=== PATIENT | male | born 1995 | race Caucasian/White ===

== ENCOUNTER 2017-10-25 15:46 | Emergency (ER) | payer SELFPAY ==
[~2017-10-25] VITALS: Ht 180.3 cm; Wt 79.4 kg
--- NOTE | 2017-10-25 16:09 | ED GU-Male ---
General Chief Complaint: -Male Stated Complaint: LT TESTICULAR PAIN/SWELLING Nursing Triage Note: PT CO OF L TESTICULAR PAIN FOR APPROX 1 MONTH, SWELLING FOR A YEAR. Source: patient Exam Limitations: no limitations History of Present Illness Time seen by provider: 16:05 Initial Comments The patient is a 21-year-old white male. He states that he has felt that he has had some swelling in his scrotum for the past year. Over the last month he has had some mild intermittent pain. It is not clear what prompted his visit today. He denies any burning on urination. There have been no sexual problems and no blood in the ejaculate. He does not recall any specific injury. Severity/Quality: mild Location: scrotal Radiation: none Activities at Onset: none Prior Genitourinary Problems: none Sexual [place] History: less than 2 months ago Associated Symptoms: denies symptoms Allergies and Home Medications Home Medications No Active Prescriptions or Reported Meds Constitutional: see HPI EENTM: no symptoms reported Respiratory: no symptoms reported Cardiovascular: no symptoms reported Gastrointestinal: no symptoms reported Genitourinary: see HPI Musculoskeletal: no symptoms reported Skin: no symptoms reported Psychiatric/Neurological: No Symptoms Reported Endocrine: No Symptoms Reported Hematologic/Lymphatic: No Symptoms Reported Past Ecvjgyz-Gkmnbo-Jzspwq Hx Patient Social History Alcohol Use: Occasionally Uses Recreational Drug Use: No Smoking Status: Never a Smoker Recent Foreign Travel: No Contact w/Someone Who Travel: No Recent Infectious Disease Expo: No Recent Hopitalizations: No (PT DENIES HX) Physical Exam Vital Signs Vital Sign - Last 12Hours 10/25/ 15:55 Temp 98.1 Pulse 84 Resp 18 B/P (MAP) 144/102 (116) Pulse Ox 100 Capillary Refill : Less Than 3 Seconds General Appearance: WD/WN, no apparent distress HEENT: normal ENT inspection Neck: full range of motion Cardiovascular: normal peripheral pulses, regular rate, rhythm, no edema, no gallop, no JVD, no murmur Respiratory: chest non-tender, lungs clear, normal breath sounds, no respiratory distress, no accessory muscle use Gastrointestinal: normal bowel sounds, non tender, soft, no organomegaly, no pulsatile mass Male: normal genitalia, other (testicles are rated at slightly small and slightly softer than normal.) Comments There is no pain to palpation over the epididymis. The testicles are vertical. The cord appears normal to palpation. There is no hernia. Progress/Results/Core Measures Suspected Sepsis Recent Fever Within 48 Hours: No Infection Criteria Present: None New/Unexplained Altered Menta: No Sepsis Screen: No Definite Risk Sepsis Diagnosis: SIRS Temperature:98.1 Pulse: 84 Respiratory Rate: 18 Laboratory Tests 10/25/17 16:20: White Blood Count 6.5 Blood Pressure 144 /102 Mean: 116 Laboratory Tests 10/25/17 16:20: Platelet Count 213 Results/Orders Lab Results Laboratory Tests Test 10/25/17 16:20 Range/Units White Blood Count 6.5 4.3-11.0 10^3/uL Red Blood Count 4.48 4.35-5.85 10^6/uL Hemoglobin 13.9 13.3-17.7 G/DL Hematocrit 41 40-54 % Mean Corpuscular Volume 91 80-99 FL Mean Corpuscular Hemoglobin 31 25-34 PG Mean Corpuscular Hemoglobin Concent 34 32-36 G/DL Red Cell Distribution Width 12.0 10.0-14.5 % Platelet Count 213 130-400 10^3/uL Mean Platelet Volume 10.5 H 7.4-10.4 FL Neutrophils (%) (Auto) 66 42-75 % Lymphocytes (%) (Auto) 20 12-44 % Monocytes (%) (Auto) 8 0-12 % Eosinophils (%) (Auto) 6 0-10 % Basophils (%) (Auto) 1 0-10 % Neutrophils # (Auto) 4.3 1.8-7.8 X 10^3 Lymphocytes # (Auto) 1.3 1.0-4.0 X 10^3 Monocytes # (Auto) 0.5 0.0-1.0 X 10^3 Eosinophils # (Auto) 0.4 H 0.0-0.3 10^3/uL Basophils # (Auto) 0.0 0.0-0.1 10^3/uL My Orders Orders - RINA PRUITT MD Cbc With Automated Diff (10/25/17 16:04) Us Scrotum (Testicle) [id number] (10/25/17 16:04) Vital Signs/I&O Vital Sign - Last 12Hours 10/25/17 15:55 Temp 98.1 Pulse 84 Resp 18 B/P (MAP) 144/102 (116) Pulse Ox 100 Capillary Refill : Less Than 3 Seconds Blood Pressure Mean: 116 Departure Communication (Admissions) Progress Notes CBC and sonogram are negative. Impression Impression: Primary Impression: testicular pain Disposition: HOME, SELF-CARE Condition: Stable/Unchanged Departure-Patient Inst. Decision time for [place]: 17:33 Referrals: NO,LOCAL PHYSICIAN (PCP) Primary Care Physician Add. Discharge Instructions: All discharge instructions reviewed with patient and/or family. Voiced understanding Wear briefs for support. Do monthly testicular exam and shower as you are in the age group for testicular cancer. If symptoms increase or other developments occur, see urologist for further diagnostics Scripts No Active Prescriptions or Reported Meds RINA PRUITT MD Oct 25, 2017 16:09
[2017-10-25 16:30] LABS: BASOPHILS % (AUTO) 1 % (0-10); EOSINOPHILS # (AUTO) 0.4 10^3/uL (0.0-0.3); EOSINOPHILS % (AUTO) 6 % (0-10); LYMPHOCYTES # (AUTO) 1.3 X 10^3 (1.0-4.0); LYMPHOCYTES % (AUTO) 20 % (12-44); MEAN CORPUSCULAR HEMOGLOBIN 31 PG (25-34); MEAN CORPUSCULAR HGB CONC 34 G/DL (32-36); MEAN CORPUSCULAR VOLUME 91 FL (80-99); MEAN PLATELET VOLUME 10.5 FL (7.4-10.4); MONOCYTES # (AUTO) 0.5 X 10^3 (0.0-1.0); MONOCYTES % (AUTO) 8 % (0-12); NEUTROPHILS # (AUTO) 4.3 X 10^3 (1.8-7.8); NEUTROPHILS % (AUTO) 66 % (42-75); PLATELET COUNT 213 10^3/uL (130-400); RED BLOOD COUNT 4.48 10^6/uL (4.35-5.85); WHITE BLOOD COUNT 6.5 10^3/uL (4.3-11.0)
--- NOTE | 2017-10-25 17:05 | Diagnostic Imaging Report ---
Scrotal ultrasound. INDICATION: Left scrotal pain. FINDINGS: The right testicle is 3.8 x 1.6 x 2.1 cm. The left testicle is 4.6 x 2.1 x 2.6 cm. There is homogeneous echotexture in both testicles. Arterial and venous waveforms are seen on both sides. There is no testicular mass seen. No hydrocele or varicocele. IMPRESSION: Unremarkable exam. Dictated by: Dictated on workstation # [id number]
[2017-10-25 17:40] VITALS: BP 144/102
== END 2017-10-25 17:40 | disposition home or self-care (01) ==
LOC: ER 15:49
DX: N50.812 Left testicular pain (principal)
CPT/HCPCS: 36415; 76870; 85025; 99281